=== PATIENT | female | born 2000 | race Caucasian/White ===

== ENCOUNTER → 2024-08-31 | Outpatient (CLI) | payer BC, SELFPAY ==
[2024-08-31 18:44] LABS: Beta HCG,Quantitative 12239 mIU/mL (<5.0)
== END | disposition home or self-care (01) ==
LOC: SLDO 16:32
PROVIDERS: Referring Provider Specialist; Visit Provider Specialist
DX: Z34.81 Encounter for supervision of other normal pregnancy, first trimester (principal)
CPT/HCPCS: 36415; 84702

== ENCOUNTER → 2024-09-11 | Outpatient (CLI) | payer BC, SELFPAY ==
[2024-09-11 16:40] LABS: Beta HCG,Quantitative 64453 mIU/mL (<5.0)
== END | disposition home or self-care (01) ==
LOC: SLDO 14:47
PROVIDERS: Referring Provider Physician Assistant Medical; Visit Provider Physician Assistant Medical
DX: Z34.81 Encounter for supervision of other normal pregnancy, first trimester (principal)
CPT/HCPCS: 36415; 84702; 86850

== ENCOUNTER → 2024-09-18 | Outpatient (CLI) | payer BC, SELFPAY ==
[2024-09-18 16:20] LABS: Beta HCG,Quantitative 91639 mIU/mL (<5.0)
[2024-10-01 07:00] LABS: Progesterone,LC/MS* 26.8 ng/mL
== END | disposition home or self-care (01) ==
LOC: SLDO 14:56
PROVIDERS: Referring Provider Physician Assistant Medical; Visit Provider Physician Assistant Medical
DX: Z34.81 Encounter for supervision of other normal pregnancy, first trimester (principal)
CPT/HCPCS: 36415; 84144; 84702

== ENCOUNTER 2024-09-21 05:40 | Day surgery (SDC) | payer BC, SELFPAY ==
[2024-09-20 09:40] VITALS: BMI 20.8
[2024-09-20 10:11] LABS: Basophils # (Auto) 0.1 Thou/mm3 (0.0-0.2); Basophils % (Auto) 1 % (0-2.5); Eosinophils # (Auto) 0.1 Thou/mm3 (0.0-0.5); Eosinophils % (Auto) 1 % (0-10); Hematocrit 39.1 % (36.0-46.0); Hemoglobin 13.4 g/dL (12.0-16.0); Immature Granulocytes % (Auto) 0 % (0-0); Immature Granulocytes Auto 0.02 Thou/mm3 (0.00-0.00); Lymphocytes # (Auto) 2.4 Thou/mm3 (1.0-4.8); Lymphocytes % (Auto) 27 % (10-50); Mean Corpuscular HGB Conc 34.3 g/dl (31.0-37.0); Mean Corpuscular Hemoglobin 28.5 pg (25.0-35.0); Mean Corpuscular Volume 83 fL (80-100); Monocytes # (Auto) 0.5 Thou/mm3 (0.0-0.8); Monocytes % (Auto) 6 % (0-12); Neutrophils # (Auto) 5.8 Thou/mm3 (1.8-7.7); Neutrophils % (Auto) 65 % (37-80); Nucleated Red Blood Cell % 0 /100 WBC (0); Platelet Count 236 Thou/mm3 (140-440); RDW Standard Deviation 39.3 fL (36.4-46.3); White Blood Count 8.9 Thou/mm3 (3.6-11.0)
[2024-09-20 10:28] LABS: Partial Thromboplastin Time 26.7 Seconds (22.0-36.0); Prothrombin Time 11.2 Seconds (9.0-12.2)
[2024-09-20 10:53] LABS: Alanine Aminotransferase 9 U/L (10-49); Albumin, Serum 4.5 gm/dL (3.5-5.0); Albumin/Globulin Ratio 1.7 (1.2-2.2); Alkaline Phosphatase 24 U/L (46-116); Anion Gap 5 (7-16); Aspartate Amino Transferase 13 U/L (0-34); BUN/Creatinine Ratio 8 Ratio (12-20); Bilirubin,Total 0.6 mg/dL (0.3-1.2); Blood Urea Nitrogen 5 mg/dL (9-23); Calcium 9.8 mg/dL (8.3-10.6); Calcium (Corrected) 9.8 mg/dL (8.5-10.1); Carbon Dioxide 25.7 mMol/L (20.0-31.0); Chloride 103 mMol/L (98-107); Creatinine (Component) 0.6 mg/dL (0.6-1.3); Estimated Creatinine Clearance 115.3 mL/min (>60); Globulin 2.7 gm/dL (2.3-3.5); Glucose 82 mg/dL (74-106); Osmolality,Calculated 264 (275-295); Sodium 134 mMol/L (136-145); Total Protein 7.2 gm/dL (5.7-8.2); eGFR > 60 See Note
[2024-09-20 11:10] LABS: Beta HCG,Quantitative 90054 mIU/mL (<5.0)
--- NOTE | 2024-09-20 21:12 | ESHP_ITS ---
RE: DARYN POWELL : 2000 DATE OF ADMISSION: 09/21/2024 DATE OF SURGERY: 09/21/2024 HISTORY OF PRESENT ILLNESS: This is a 23-year-old 1, para 0, with LMP of 07/24/2024 who had serial ultrasounds confirming a missed at 6 weeks' gestation. She has also had serial quantitative beta hCG. She is demonstrating declining hCG. She elects to undergo a suction, dilatation, and curettage. HOME MEDICATIONS: multivitamin 1 p.o. daily. SOCIAL HISTORY: She denies any alcohol, drug use or smoking. PAST MEDICAL HISTORY: Endometriosis, polycystic ovarian syndrome, and ovulatory infertility. FAMILY HISTORY: Hypertension. PAST SURGICAL HISTORY: Denies. REVIEW OF SYSTEMS: She denies any chest pain, palpitations, cough, fever, shortness of breath, or lower extremity pain. PHYSICAL EXAMINATION: VITAL SIGNS: Blood pressure 110/70, heart rate 88, respirations 18, temperature is 98.2. HEENT: Oropharynx and sclerae are clear. LUNGS: Clear to auscultation bilaterally. CARDIOVASCULAR: Heart, regular rate and rhythm. ABDOMEN: Nontender. No scars noted. EXTREMITIES: Nontender. SKIN: No gross rashes or lesions. NEUROLOGIC: No focal deficit. ASSESSMENT: Missed at 6 weeks' gestation. PLAN: Suction, dilatation and curettage. Informed consent was obtained. The patient was made aware of the risks, complications, alternatives, benefits of the proposed procedure and she agrees. DT: 20:49:43 TT: 21:11:00 Ref: [id number] - TID: [id number] [facility]
[2024-09-21] VITALS (10 sets, daily range): BP systolic 106–121; BP diastolic 67–80; PULSE 75–109; RESP 12–20; TEMP 36.9–37.1; O2SAT 98–100; BMI 20.6
--- NOTE | 2024-09-21 08:10 | SUR.PHASEI ---
0810 Patient arrived to recovery resting comfortably in [facility], drowsy and able to arouse with verbal prompting, breathing unlabored, vital signs stable, denies pain, dressing intact to vaginal area; peripad, no bleeding noted, lung sounds clear upon auscultation, bilateral radial pulses present when palpated, report received Cuauhtemoc CHEN and Augustin JONES
[2024-09-21] MEDS: KETOROLAC INJ 30 MG/ML VIAL IVP (08:27)
[2024-09-21] MEDS: HYDROmorphone INJ 2 MG/ML VIAL 0.4 MG IVP (08:43)
--- NOTE | 2024-09-21 09:17 | SUR.PHASEII ---
0917 Patient meets discharge criteria from recovery, awake and alert, breathing unlabored, vital signs stable, per patient her pain is tolerable, dressing intact; small amount of blood noted, patient assisted with dressing into her clothing by her , eating ice chips; denies nausea, discharge instructions given to patient and patients , signed discharge instructions. Patient given all her belongings prior to discharge, transported via wheelchair and left in a private vehicle.
--- NOTE | 2024-09-21 10:52 | ESOP_ITS ---
RE: DARYN POWELL : 2000 DATE OF OPERATION: 09/21/2024 PREOPERATIVE DIAGNOSIS: Missed at 6 weeks' gestation. POSTOPERATIVE DIAGNOSIS: Missed at 6 weeks' gestation. PROCEDURE PERFORMED: Suction, dilatation and curettage. SURGEON: Ward Carpio DO BALE STACKER: None. ANESTHESIA: General. ANESTHESIOLOGIST: Augustin Meredith CRNA ESTIMATED BLOOD LOSS: 25 mL COMPLICATIONS: None. COUNTS: Correct. PATHOLOGY: 1. Products of conception submitted to permanent pathology. 2. Products of conception sent for Anora miscarriage testing. FINDINGS: An 8 week size uterus, cervix long and closed. Uterus is anteverted. DESCRIPTION OF PROCEDURE: After proper informed consent was obtained and the patient made aware of the risks, complications, alternatives, benefits of the proposed procedure, she was taken to the operating room where she underwent induction of general anesthesia. She was placed in dorsal lithotomy position. She was prepped and draped in usual sterile fashion. A timeout was performed. A speculum was placed in vagina. Single-tooth tenaculum was used to grasp the anterior lip of cervix. The cervix was dilated to accommodate the 8 mm suction curette. The suction curette was utilized to curette the uterine cavity in all four quadrants with moderate amount of products of conception obtained. There was no bleeding at the end of the procedure. She received Pitocin, Methergine and TXA. The patient received RhoGAM on 09/11/2024 for Rh negative. Discharge home. Discharge instructions given. Followup in the office in 1 week. I discussed with the patient's , the nature of her condition, intraoperative findings, expectation for recovery. All questions answered. DT: 08:28:37 TT: 10:51:00 Ref: [id number] - TID: [id number]
== END 2024-09-21 09:17 | disposition home or self-care (01) ==
PROVIDERS: PCP Family Medicine; Referring Provider Specialist; Visit Provider Specialist
PROC: (CPT 58120; principal; 2024-09-21 07:30)
DX: O02.1 Missed abortion (principal); Z3A.01 Less than 8 weeks gestation of pregnancy; Z82.49 Family history of ischemic heart disease and other diseases of the circulatory system; E28.2 Polycystic ovarian syndrome; O99.281 Endocrine, nutritional and metabolic diseases complicating pregnancy, first trimester
CPT/HCPCS: 59820; 36415; 80053; 84702; 85025; 85610; 85730; 86850; 86870; 86900; 86901; A4217; J0690; J1885; J2210; J2250; J2704; J3010; J3490

== ENCOUNTER 2024-11-01 11:34 | Emergency (ER) | payer BC, SELFPAY ==
[2024-11-01 13:20] VITALS: BP 136/86; PULSE 67; RESP 16; TEMP 37; O2SAT 98
--- NOTE | 2024-11-01 13:21 | XR_ITS ---
Examination: Complete OB ultrasound, less than 14 weeks, transabdominal Date and time of exam: November 01, 2024 1416 hours INDICATIONS: Vaginal bleeding beginning this morning, miscarriage September 21, 2024 Technique: Obstetrical ultrasound images less than 14 weeks performed via transabdominal imaging Findings: Uterus 7.8 x 2.9 x 4.9 cm No uterine mass or intrauterine gestation Endometrial stripe 0.5 cm Right ovary 3.3 x 1.9 x 2.4 cm arterial flow Left ovary 4.5 x 1.7 x 2.3 cm arterial flow IMPRESSION: No uterine mass or intrauterine gestation Recommend 6 month follow-up pelvic sonography to document stability of mildly prominent left ovary
--- NOTE | 2024-11-01 13:22 | EDNOTE_ITS ---
<Statement entered by Liliana Carter MD - 11/02/24 06:45> As co-signing physician, I was present and available for consult prn. I concur with the plan and care as documented by the midlevel provider. ED Female Urogenital RME/HPI General Chief complaint: Urogenital-Female Stated complaint: VAGINAL BLEEDING TODAY, + PREG Time Seen by Provider: 11/01/24 13:21 Arrival date/time: 11/01/24 11:34 RME / HPI RME / HPI Narrative: 24-year-old female patient presents emergency department with complaint of vaginal bleeding. Patient states that she had a miscarriage and had a D&C done on September 21, 2024. Patient then states that October 24, 2024 she was told that she was by her PCP. hCG quant at that time was less than 6. Patient states over the last 2 days that she has been bleeding and she is worried if she may be having a miscarriage. She denies fever chills or abdominal cramping. Onset (ago): day(s) (2) Location: suprapubic Related Data Home Medications ?Medication ?Instructions ?Recorded ?Confirmed No Known Home Medications 09/20/24 09/20/24 Allergies Allergy/AdvReac Type Severity Reaction Status Date / Time No Known Allergies Allergy Verified 11/01/24 11:37 Review of Systems Review of Systems Systems Reviewed: All systems reviewed, normal except as documented Constitutional Constitutional: Reports system reviewed and no additional complaints, except as documented Cardiovascular Cardiovascular: Reports system reviewed and no additional complaints, except as documented Respiratory Respiratory: Reports system reviewed and no additional complaints, except as documented Gastrointestinal Gastrointestinal: Reports system reviewed and no additional complaints, except as documented Genitourinary Genitourinary: Reports system reviewed and no additional complaints, except as documented Musculoskeletal Musculoskeletal: Reports system reviewed and no additional complaints, except as documented Neurologic Neurologic: Reports system reviewed and no additional complaints, except as documented Psychiatric Psychiatric: Reports system reviewed and no additional complaints, except as documented Endocrine Endocrine: Reports system reviewed and no additional complaints, except as documented ED Exam General General appearance: Present alert and in no apparent distress Head Head exam: Present atraumatic and normocephalic ENT ENT exam: Present normal exam and normal oropharynx Neck Neck exam: Present normal inspection and full ROM Chest Chest inspection: Present normal inspection and symmetric chest wall rise Respiratory Respiratory exam: Present normal lung sounds bilaterally Cardiovascular Cardiovascular exam: Present regular rate and normal rhythm Extremities Exam Extremities exam: Present normal inspection and full ROM Course Quality Measures none Orders Category Date Time Status US OB <= 14 weeks fetus Stat Exams 11/01/24 13:21 Completed ABO/RH Type Stat Lab 11/01/24 13:36 Completed Beta HCG,Quantitative Stat Lab 11/01/24 13:36 Completed CBC Stat Lab 11/01/24 13:36 Completed Comprehensive Metabolic Panel Stat Lab 11/01/24 13:36 Completed Urinalysis Stat Lab 11/01/24 13:20 Completed Vital Signs Vital signs: Vital Signs Temperature 98.6 F 11/01/24 13:20 Pulse Rate 67 11/01/24 13:20 Respiratory Rate 16 11/01/24 13:20 Blood Pressure 136/86 H 11/01/24 13:20 Pulse Oximetry (%) 98 11/01/24 13:20 Oxygen Delivery Method Room Air 11/01/24 13:20 Urogenital - Female MDM Narrative MDM Narrative:: Ultrasound was negative for IUP likely miscarriage. Also hCG quant was 13mIU/ mL Patient data External records reviewed:: None Clinical information provided by:: patient Social determinants that could affect healthcare access:: none Patient has the following chronic illnesses:: na How is presenting disease/condition affected by chronic disease/condition?: no chronic disease Evaluation data The following diagnostics were reviewed and interpreted by me:: lab results and radiology exam(s) Lab and/or radiology exams considered but not ordered:: both considered and performed Interpretation Summary: Medications / Prescriptions Medications or Prescriptions considered but not ordered:: meds considered and ordered Medication administrations:: rhogam Consultations Consultation(s) initiated? (list below): No Diagnosis Urogenital Female Differential Diagnosis: urinary tract infection, bacterial vaginosis, trichomoniasis, ruptured ovarian cyst and dysmenorrhea Most likely diagnosis given after review of the tests above:: missed Admission Indicated Admission indicated?: not indicated Explain why admission is indicated or not indicated:: na Admission Request Was there a request for admission?: No Admission Attestation Admission request attestation: na Disposition Plan Disposition Plan: Discharge Discharge Attestation Discharge Attestation: The patient and all family members were given an opportunity to ask questions and understood the discharge instructions. Discharge instructions specifically effects, indications for sooner follow up or return to the emergency department, and the expected course of current diagnosis. Patient condition: Stable Discharge Plan Plan Patient Disposition: HOME (Self Care) Prescriptions/Referrals Prescriptions/Med Rec: No Action No Known Home Medications Referrals: Jon Mcghee MD [Primary Care Provider] - In 1 week Problem List Clinical Impression: Missed Patient/Caregiver Discharge Instructions Print Language: Turkish Stand Alone Forms: Shelby Award Info., Patient Portal Info Letter
[2024-11-01 13:44] LABS: Collection Type, Urine Clean Catch
[2024-11-01 13:44] LABS: Basophils % (Auto) 1 % (0-2.5); Eosinophils # (Auto) 0.2 Thou/mm3 (0.0-0.5); Eosinophils % (Auto) 3 % (0-10); Hematocrit 44.8 % (36.0-46.0); Hemoglobin 15.3 g/dL (12.0-16.0); Immature Granulocytes % (Auto) 0 % (0-0); Immature Granulocytes Auto 0.02 Thou/mm3 (0.00-0.00); Lymphocytes % (Auto) 36 % (10-50); Mean Corpuscular HGB Conc 34.2 g/dl (31.0-37.0); Mean Corpuscular Hemoglobin 28.5 pg (25.0-35.0); Mean Corpuscular Volume 84 fL (80-100); Monocytes # (Auto) 0.5 Thou/mm3 (0.0-0.8); Monocytes % (Auto) 6 % (0-12); Neutrophils # (Auto) 4.7 Thou/mm3 (1.8-7.7); Neutrophils % (Auto) 55 % (37-80); Nucleated Red Blood Cell % 0 /100 WBC (0); Platelet Count 252 Thou/mm3 (140-440); Red Blood Count 5.36 Miln/mm3 (4.00-5.20); White Blood Count 8.5 Thou/mm3 (3.6-11.0)
[2024-11-01 13:49] LABS: Bilirubin,Urine Negative (Negative); Blood,Urine 3+ (Negative); Clarity,Urine Clear (Clear/Hazy); Color,Urine Lt-Yellow (Lt Yel-Yel); Glucose, Urine Negative (Negative); Ketones,Urine Negative (Negative); Leukocyte Esterase,Urine Positive (Negative); Nitrite,Urine Negative (Negative); PH,Urine 7.5 (5.0-7.0); Protein,Urine Negative (Neg - Trace); RBC,Urine 2 /hpf (0-3); Specific Gravity,Urine 1.016 (1.001-1.035); Squamous Epithelial Cell,Urine 13 /hpf (0-5); Urobilinogen,Urine Negative mg/dL (0.0-1.0); WBC,Urine 14 /hpf (0-5)
[2024-11-01 14:04] LABS: Alanine Aminotransferase 12 U/L (10-49); Albumin, Serum 5.1 gm/dL (3.5-5.0); Albumin/Globulin Ratio 1.6 (1.2-2.2); Alkaline Phosphatase 36 U/L (46-116); Anion Gap 6 (7-16); Aspartate Amino Transferase 15 U/L (0-34); BUN/Creatinine Ratio 13 Ratio (12-20); Beta HCG,Quantitative 13 mIU/mL (<5.0); Bilirubin,Total 0.6 mg/dL (0.3-1.2); Blood Urea Nitrogen 8 mg/dL (9-23); Calcium 10.4 mg/dL (8.3-10.6); Calcium (Corrected) 10.4 mg/dL (8.5-10.1); Carbon Dioxide 28.6 mMol/L (20.0-31.0); Chloride 101 mMol/L (98-107); Creatinine (Component) 0.6 mg/dL (0.6-1.3); Estimated Creatinine Clearance 116.8 mL/min (>60); Globulin 3.2 gm/dL (2.3-3.5); Glucose 82 mg/dL (74-106); Osmolality,Calculated 269 (275-295); Potassium 4.2 mMol/L (3.4-5.1); Sodium 136 mMol/L (136-145); Total Protein 8.3 gm/dL (5.7-8.2); eGFR > 60 See Note
== END 2024-11-01 16:33 | disposition home or self-care (01) ==
PROVIDERS: Physician Assistant; Emergency Provider Emergency Medicine; PCP Family Medicine
DX: O02.1 Missed abortion (principal)
CPT/HCPCS: 36415; 76801; 80053; 81001; 84702; 85025; 86900; 86901; 99284

== ENCOUNTER → 2024-12-06 | Outpatient (CLI) | payer BC, SELFPAY ==
[2024-12-06 17:58] LABS: Basophils % (Auto) 1 % (0-2.5); Eosinophils # (Auto) 0.2 Thou/mm3 (0.0-0.5); Eosinophils % (Auto) 2 % (0-10); Hematocrit 40.9 % (36.0-46.0); Hemoglobin 13.9 g/dL (12.0-16.0); Immature Granulocytes % (Auto) 0 % (0-0); Immature Granulocytes Auto 0.02 Thou/mm3 (0.00-0.00); Lymphocytes # (Auto) 3.2 Thou/mm3 (1.0-4.8); Lymphocytes % (Auto) 44 % (10-50); Mean Corpuscular Hemoglobin 28.1 pg (25.0-35.0); Mean Corpuscular Volume 83 fL (80-100); Monocytes # (Auto) 0.4 Thou/mm3 (0.0-0.8); Monocytes % (Auto) 6 % (0-12); Neutrophils # (Auto) 3.5 Thou/mm3 (1.8-7.7); Neutrophils % (Auto) 47 % (37-80); Nucleated Red Blood Cell % 0 /100 WBC (0); Platelet Count 271 Thou/mm3 (140-440); RDW Standard Deviation 37.6 fL (36.4-46.3); Red Blood Count 4.94 Miln/mm3 (4.00-5.20); White Blood Count 7.3 Thou/mm3 (3.6-11.0)
[2024-12-06 18:12] LABS: Glucose Estimated Average 88 mg/dL (80-131); Hemoglobin A1C 4.7 % Hgb (4.8-6.0)
[2024-12-06 18:45] LABS: Alanine Aminotransferase 13 U/L (10-49); Albumin, Serum 4.4 gm/dL (3.5-5.0); Albumin/Globulin Ratio 1.7 (1.2-2.2); Alkaline Phosphatase 44 U/L (46-116); Anion Gap 8 (7-16); Aspartate Amino Transferase 14 U/L (0-34); BUN/Creatinine Ratio 23 Ratio (12-20); Beta HCG,Quantitative 2 mIU/mL (<5.0); Bilirubin,Total 0.4 mg/dL (0.3-1.2); Blood Urea Nitrogen 14 mg/dL (9-23); Chloride 102 mMol/L (98-107); Creatinine (Component) 0.6 mg/dL (0.6-1.3); Free T4 (Free Thyroxine) 1.28 ng/dL (0.89-1.76); Globulin 2.6 gm/dL (2.3-3.5); Glucose 81 mg/dL (74-106); Osmolality,Calculated 277 (275-295); Sodium 139 mMol/L (136-145); Thyroid Stimulating Hormone 1.42 uIU/mL (0.55-4.78); eGFR > 60 See Note
[2024-12-12 06:21] LABS: PTT-LA Screen 33 seconds (< OR = 40); dRVVT Screen 28 seconds (< OR = 45)
[2024-12-16 03:07] LABS: Cardiolipin Ab (IgA) 2.7 APL-U/mL; Cardiolipin Ab (IgG) <2.0 GPL-U/mL
[2024-12-18 07:03] LABS: B2-Glycoprotein I Ab IgA <2.0 U/mL; B2-Glycoprotein I Ab IgG <2.0 U/mL; B2-Glycoprotein I Ab IgM <2.0 U/mL; Cardiolipin Ab (IgM) <2.0 MPL-U/mL; DHEA Sulfate* 290 mcg/dL (18-391); Estrogen, Total, Serum* 111 pg/mL; Progesterone,LC/MS* <0.1 ng/mL; Prolactin* 9.1 ng/mL; Testosterone, Free,Dialysis 3.9 pg/mL (0.1-6.4); Testosterone, Total, Dialysis 29 ng/dL (2-45)
== END | disposition home or self-care (01) ==
PROVIDERS: PCP Family Medicine; Referring Provider Specialist; Visit Provider Specialist
DX: E28.2 Polycystic ovarian syndrome (principal); N96 Recurrent pregnancy loss
CPT/HCPCS: 36415; 80053; 82627; 82672; 83001; 83002; 83036; 84144; 84146; 84402; 84403; 84439; 84443; 84702; 85025; 85613; 85730; 86146; 86147